=== PATIENT | male | born 1965 | race Caucasian/White ===

== ENCOUNTER 2017-09-30 13:03 | Inpatient (IN) | payer OTHER ==
[2017-09-30 13:05] VITALS: BP 179/84; PULSE 97; RESP 18; TEMP 99.3; O2SAT 97
[2017-09-30 13:44] LABS: AUTOMATED NEUTROPHIL # 7.3 TH/MM3 (1.8-7.7); BASOPHIL % 0.3 % (0.0-2.0); EOSINOPHIL % 0.3 % (0.0-4.0); HEMATOCRIT 44.6 % (39.0-51.0); HEMOGLOBIN 15.4 GM/DL (13.0-17.0); LYMPH % 14.9 % (9.0-44.0); LYMPHOCYTE # 1.4 TH/MM3 (1.0-4.8); MEAN CELL VOLUME 91.8 FL (80.0-100.0); MEAN CORPUSCULAR HEMOGLOBIN 31.7 PG (27.0-34.0); MEAN CORPUSCULAR HGB CONC 34.5 % (32.0-36.0); MEAN PLATELET VOLUME 7.9 FL (7.0-11.0); MONO % 9.2 % (0.0-8.0); MONOCYTE # 0.9 TH/MM3 (0-0.9); NEUT % 75.3 % (16.0-70.0); PLATELET COUNT 245 TH/MM3 (150-450); RED BLOOD COUNT 4.86 MIL/MM3 (4.50-5.90); RED CELL DISTRIBUTION WIDTH 12.7 % (11.6-17.2); WHITE BLOOD COUNT 9.6 TH/MM3 (4.0-11.0)
[2017-09-30 13:59] LABS: BICARBONATE 27.9 MEQ/L (21.0-32.0); CALCIUM 9.1 MG/DL (8.5-10.1); CREATININE 1.02 MG/DL (0.60-1.30)
[2017-09-30] MEDS ORDERED: LORA2TAB7 PO (14:43)
[2017-09-30] MEDS ORDERED: KETOROLAC TROMETHAMINE 30 MG/ML (IVP) VIAL IV PUSH ONE (15:30)
[2017-09-30] MEDS ORDERED: VANCOMYCIN INJ 1,000 MG in SODIUM CHLOR 0.9% 250 ML INJ 250 ML IV ONE (15:30)
[2017-09-30] MEDS ORDERED: SODIUM CHLOR 0.9% 1000 ML INJ 1,000 ML IV ONE (15:30)
[2017-09-30] MEDS ORDERED: AZTREONAM INJ 2,000 MG in SODIUM CHLORIDE 0.9% INJ 100 ML IV ONE (15:30)
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
[2017-09-30] MEDS ORDERED: MAGNESIUM HYDROXIDE SUSP 30 ML CUP PO PRN (16:00)
[2017-09-30] MEDS ORDERED: ONDANSETRON HCL 4 MG/2 ML VIAL IVP PRN (16:00)
[2017-09-30] MEDS ORDERED: NALOXONE HCL 0.4 MG/ML AMP IV PUSH PRN (16:00)
[2017-09-30] MEDS ORDERED: SODIUM CHLORIDE 0.9% FLUSH 10 ML FLUSH IV FLUSH PRN (16:00)
[2017-09-30] MEDS ORDERED: ACETAMINOPHEN 325 MG TAB PO PRN (16:00)
[2017-09-30] MEDS ORDERED: ACETAMINOPHEN/HYDROcodone 325 MG/5 MG TAB PO PRN (16:15)
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
[2017-09-30] MEDS ORDERED: IOHEXOL 350 MG/ML 10 ML VIAL (for RAD DIAG) IVCONTRAST ONE (17:14)
[2017-09-30 17:15] VITALS: BP 132/68; PULSE 71; RESP 16; TEMP 99.9; O2SAT 97
--- NOTE | 2017-09-30 17:47 | RADRPT ---
EXAM DATE/TIME: 09/30/2017 16:50 [facility] COMPARISON: No previous studies available for comparison. INDICATIONS : Left hand pain, cellulitis. IV CONTRAST: 81 cc Omnipaque 350 (iohexol) IV RADIATION DOSE: 11.61 CTDIvol (mGy) MEDICAL HISTORY : Hypertension. TIA, Cardiac. SURGICAL HISTORY : Pacemaker. Defibrillator. ENCOUNTER: Initial ACUITY: 2 days PAIN SCALE: 10/10 LOCATION: anterior middle palm. TECHNIQUE: Volumetric scanning of the hand was performed. Using automated exposure control and a djustment of the mA and/or kV according to patient size, radiation dose was kept as low as reasonably achievable to obtain optimal diagnostic quality images. DICOM format image data is available electr onically for review and comparison. FINDINGS: BONES: Osseous structures appear intact without evidence for acute fracture or focal bony destruc tion. Alignment is within normal limits. JOINTS: Joint spaces are maintained. SOFT TISSUES: Muscles, tendons, and neurovascular structures are grossly unremarkable. There is d iffuse soft tissue edema overlying the dorsum of the hand. Very subtle low density bilobed collection measuring approximately 1.5 x 0.4 x 3.1 cm in the dorsal radial aspect of the proximal hand. CONCLUSION: 1. Findings consistent with cellulitis primarily involving the dorsum of the hand with a very small 1 .5 x 0.4 x 1.3 cm developing collection in the dorsal radial aspect of the proximal hand. 2. No evidence for erosive bony change, subcutaneous emphysema or acute bony fracture. Khari Brady MD on September 30, 2017 at 17:39 Board Certified Radiologist. This report was verified electronically.
[2017-09-30] MEDS: SODIUM CHLOR 0.9% 1000 ML INJ 1,000 ML IV SCH (17:57)
[2017-09-30] MEDS: ACETAMINOPHEN/HYDROcodone 325 MG/5 MG TAB PO PRN (19:44)
[2017-09-30] MEDS: SODIUM CHLORIDE 0.9% FLUSH 10 ML FLUSH IV FLUSH SCH (19:44)
[2017-09-30 20:35] VITALS: BP 150/69; PULSE 91; RESP 22; TEMP 101.3; O2SAT 99
[2017-09-30] MEDS: MORPHINE SULFATE 2 MG/ML INJ IV PUSH PRN ×2 (20:51→23:54)
[2017-09-30] MEDS: AZTREONAM INJ 2,000 MG in SODIUM CHLORIDE 0.9% INJ 100 ML IV SCH (20:53)
[2017-09-30] MEDS: VANCOMYCIN INJ 1,000 MG in SODIUM CHLOR 0.9% 250 ML INJ 250 ML IV SCH (20:53)
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
--- NOTE | 2017-09-30 22:50 | RADRPT ---
EXAM DATE/TIME: 09/30/2017 20:51 [facility] COMPARISON: No previous studies available for comparison. INDICATIONS : Inflammation left hand, poisonous plant stuck hand MEDICAL HISTORY : Hypertension. TIA, Cardiac. SURGICAL HISTORY : Pacemaker. Defibrillator ENCOUNTER: Initial ACUITY: 2 days PAIN SCORE: 10/10 LOCATION: Left Hand FINDINGS: Three view examination of the left hand demonstrates no bony destruction, dislocation, or fracture. There is moderate dorsal soft tissue swelling noted. The carpal bones appear intact. The interphala ngeal and metacarpophalangeal joints are intact. Bony mineralization is normal. No radiodense foreig n body. CONCLUSION: Soft tissue swelling. No acute bony findings. Fahad Muniz MD on September 30, 2017 at 22:48 Board Certified Radiologist. This report was verified electronically.
[2017-10-01] VITALS (7 sets, daily range): BP systolic 109–156; BP diastolic 58–80; PULSE 63–90; RESP 20–21; TEMP 98.7–100.1; O2SAT 92–100
[2017-10-01] MEDS: SODIUM CHLOR 0.9% 1000 ML INJ 1,000 ML IV SCH ×3 (02:00→22:46)
[2017-10-01] MEDS: MORPHINE SULFATE 2 MG/ML INJ IV PUSH PRN ×6 (04:01→22:40)
[2017-10-01 07:22] LABS: HEMATOCRIT 39.6 % (39.0-51.0); HEMOGLOBIN 13.5 GM/DL (13.0-17.0); MEAN CELL VOLUME 91.7 FL (80.0-100.0); MEAN CORPUSCULAR HEMOGLOBIN 31.2 PG (27.0-34.0); MEAN PLATELET VOLUME 8.2 FL (7.0-11.0); PLATELET COUNT 193 TH/MM3 (150-450); RED BLOOD COUNT 4.32 MIL/MM3 (4.50-5.90); WHITE BLOOD COUNT 6.4 TH/MM3 (4.0-11.0)
[2017-10-01] MEDS: SODIUM CHLORIDE 0.9% FLUSH 10 ML FLUSH IV FLUSH SCH ×2 (07:39→20:32)
[2017-10-01 07:42] LABS: BICARBONATE 26.4 MEQ/L (21.0-32.0); CALCIUM 8.2 MG/DL (8.5-10.1); CREATININE 0.66 MG/DL (0.60-1.30)
[2017-10-01] MEDS: VANCOMYCIN INJ 1,000 MG in SODIUM CHLOR 0.9% 250 ML INJ 250 ML IV SCH ×2 (09:49→22:43)
[2017-10-01] MEDS: AZTREONAM INJ 2,000 MG in SODIUM CHLORIDE 0.9% INJ 100 ML IV SCH (10:26)
--- NOTE | 2017-10-01 12:33 | MB ---
cc: HUMBERTO BREWSTER MD DATE OF CONSULTATION: 10/01/[address] Bo REASON FOR CONSULTATION: 1. Severe cellulitis of the left arm and forearm 2. Questionable abscess. HISTORY OF PRESENT ILLNESS This is a 52-year-old white male who presents to emergency department 4 days after being struck by thorns from the plant. The patient states that he was cleaning his yard and got struck on the palmar aspect of the left hand and then he developed swelling and pain which was worsening and therefore he came to emergency department for evaluation. He was admitted to the hospital and temperature was to 101.3 degrees yesterday evening. Blood cultures were obtained. CT scan of the upper extremities revealed findings consistent with cellulitis involving the dorsum of the hand and a very small fluid collection at the dorsal, radial aspect of the proximal hand. There was no evidence of bony destructive change noted. The patient notes that he is still has a lot of pain in the hand. The dorsum of the hand is markedly swollen and he has pain when he tries to move the fingers. He has been started on IV antibiotics. He was also evaluated by the hand surgeon. It was felt that there is no drainable fluid collection. His white blood cell count is normal. This consultation is requested for antibiotic management. PAST MEDICAL HISTORY 1. Anxiety disorder 2. History of IV drug use but reportedly has been clean for 4 years. 3. Nasal surgery. ALLERGIES PENICILLIN CODEINE PROCAINE MEDICATIONS Vancomycin aztreonam [place] morphine sulfate p.r.n. SOCIAL HISTORY The patient smokes a pack of cigarettes a day. Denies alcohol. There is a history of IV drug use. FAMILY HISTORY Noncontributory. REVIEW OF SYSTEMS Significant for headache, nausea and left hand pain. PHYSICAL EXAMINATION IN GENERAL: This is a slender male who is in no acute distress. He appears somewhat somnolent but is easily aroused, and he is in no acute distress. VITAL SIGNS: Temperature 100.1, Blood pressure 102/62, respirations 20, heart rate 75. HEAD, EYES, EARS, NOSE, AND THROAT: Extraocular movements grossly intact, pupils reactive to light. No icterus. Oropharynx moist mucosa without lesions. NECK: Supple without adenopathy or swelling. LUNGS: Clear to auscultation. HEART: Regular S1-S2, without murmurs. ABDOMEN: Bowel sounds present, soft, nontender. RECTUM: Rectal was not preformed. EXTREMITIES: The left hand has marked swelling at the dorsum of the hand and the fingers of swollen as well. There is a line of demarcation drawn with a marker at the area just beneath the elbow region and it indicates erythema involving the forearm and also the dorsum of the hand. Currently there is no significant visible erythema but there is significant swelling and extreme tenderness on palpation of both the forearm and the hand. The other extremities have no clubbing, cyanosis or edema. SKIN: No diffuse rash. NEUROLOGIC: No gross focal findings. LABORATORY DATA WBCs 6.4, platelets 193, creatinine 0.60, BUN eight, sodium 139 and C-reactive protein 8.6. Toxicology screen positive for opiates and amphetamines. IMPRESSION 1. Cellulitis of the left hand and forearm following thorn injury to the hand. There is no current drainage from the area where the patient was struck by the thorn. 2. Fever secondary to the cellulitis. RECOMMENDATIONS 1. Continue vancomycin 2. Discontinue the aztreonam. 3 begin Levaquin for Gram-negative bacteria coverage. 4. Monitor the response to antibiotics and elevation of the left hand. Since there is no drainage to obtain a culture and it does not seem that there is a drainable fluid collection at the hand, we will need to follow up his response to the antibiotics. Thank you this consultation. Further determination on antibiotics will be based on the patient's response. If he improves satisfactorily he could probably be switched to oral antibiotics and discharged. Humberto Brewster MD FD/ronnell /11:38 AM /11:56 AM
[2017-10-01] MEDS: LEVOFLOXACIN 750 MG TAB PO SCH (13:16)
--- NOTE | 2017-10-01 14:46 | HHI.PR ---
Subjective Remarks No new complaints Objective Vital Signs Date Time Temp Pulse Resp B/P (MAP) Pulse Ox O2 Delivery O2 Flow Rate FiO2 10/01/17 13:22 18 10/01/17 12:00 100.1 72 20 117/59 (78) 95 10/01/17 08:00 100.1 75 20 124/62 (82) 92 10/01/17 04:00 98.7 63 20 114/62 (79) 97 10/01/17 00:35 99.1 68 20 109/58 (75) 93 10/01/17 00:31 68 09/30/17 20:35 101.3 91 22 150/69 (96) 99 09/30/17 17:15 99.9 71 16 132/68 (89) 97 09/30/17 17:14 I/O 09/30/17 09/30/17 09/30/17 10/01/17 10/01/17 10/01/17 07:00 15:00 23:00 07:00 15:00 23:00 Intake Total 700 ml 1000 ml 1621 ml Output Total 700 ml 600 ml Balance 700 ml 300 ml 1021 ml Intake IV Total 700 ml 1000 ml 1621 ml Output Urine Total 700 ml 600 ml Result Diagram: 10/01/17 0610/01/17 0626 Objective Remarks Examination left upper extremity reveals mild but notable improvement in the edema and especially the erythema in the dorsal aspect of the left hand wrist and forearm Neurovascularly intact throughout Able to passively move his hands fully although with some discomfort, but this is much more than yesterday Assessment and Plan Problem List: (1) Cellulitis ICD Codes: L03.90 - Cellulitis, unspecified Plan: Continue IV antibiotics and strict elevation of the left hand. I've requested the cortex come back and modify his left upper extremity splint to make it more comfortable so he'll be more compliant I've encouraged him and shown him how to do exercises which will help with the edema and stiffness No indication for any surgical intervention at this time Efrain Cifuentes III, MD Oct 01, 2017 14:46
--- NOTE | 2017-10-01 17:41 | HHI.PR ---
Subjective Remarks Complaints of left hand/arm pain. Patient febrile with a MAXIMUM TEMPERATURE of 100.1. Denies chest pain or shortness of breath. Denies nausea vomiting or abdominal pain. Objective Vitals Vital Signs Date Time Temp Pulse Resp B/P (MAP) Pulse Ox O2 Delivery O2 Flow Rate FiO2 10/01/17 17:07 18 10/01/17 16:40 99.5 76 20 134/60 (84) 97 10/01/17 12:00 100.1 72 20 117/59 (78) 95 10/01/17 08:00 100.1 75 20 124/62 (82) 92 10/01/17 04:00 98.7 63 20 114/62 (79) 97 10/01/17 00:35 99.1 68 20 109/58 (75) 93 10/01/17 00:31 68 09/30/17 20:35 101.3 91 22 150/69 (96) 99 I/O 09/30/17 09/30/17 09/30/17 10/01/17 10/01/17 10/01/17 07:00 15:00 23:00 07:00 15:00 23:00 Intake Total 700 ml 1000 ml 1621 ml Output Total 700 ml 600 ml Balance 700 ml 300 ml 1021 ml Intake IV Total 700 ml 1000 ml 1621 ml Output Urine Total 700 ml 600 ml Result Diagram: 10/01/17 0610/01/17 0626 Imaging Last Impressions Upper Extremity CT 09/30/17 0000 Signed Impressions: Service Date/Time: September 16:50 - CONCLUSION: 1. Findings consistent with cellulitis primarily involving the dorsum of the hand with a very small 1.5 x 0.4 x 1.3 cm developing collection in the dorsal radial aspect of the proximal hand. 2. No evidence for erosive bony change, subcutaneous emphysema or acute bony fracture. Khari Brady MD Hand X-Ray 09/30/17 0000 Signed Impressions: Service Date/Time: September 20:51 - CONCLUSION: Soft tissue swelling. No acute bony findings. Fahad Muniz MD Objective Remarks GENERAL: This is a well-nourished, well-developed patient, in no apparent distress. SKIN:B/L hand is dirty. left hand/arm with swelling and erythema. very tender to palpations. sensation is intact. pulse intact. HEAD: Atraumatic. Normocephalic. No temporal or scalp tenderness. EYES: Pupils equal round and reactive. Extraocular motions intact. No scleral icterus. No injection or drainage. ENT: Nose without bleeding, purulent drainage or septal hematoma. Throat without erythema, tonsillar hypertrophy or exudate. Uvula midline. Airway patent. NECK: Trachea midline. No JVD or lymphadenopathy. Supple, nontender, no meningeal signs. CARDIOVASCULAR: Regular rate and rhythm without murmurs, gallops, or rubs. RESPIRATORY: Clear to auscultation. Breath sounds equal bilaterally. No wheezes , rales, or rhonchi. GASTROINTESTINAL: Abdomen soft, non-tender, nondistended. No hepato-splenomegaly , or palpable masses. No guarding. MUSCULOSKELETAL: Extremities without clubbing, cyanosis, or edema. No joint tenderness, effusion, or edema noted. No calf tenderness. Negative Homans sign bilaterally. NEUROLOGICAL: Awake and alert. Cranial nerves II through XII intact. Motor and sensory grossly within normal limits. Five out of 5 muscle strength in all muscle groups. Normal speech. Medications and IVs Current Medications Medications (Trade) Dose Ordered Sig/[place] Route Start Time Stop Time Status Last Admin Sodium Chloride 1,000 ml @ 100 mls/hr Q10H IV 09/30/17 16:00 10/01/17 02:00 (NS Flush) 2 ml UNSCH PRN IV FLUSH 09/30/17 16:00 (NS Flush) 2 ml BID IV FLUSH 09/30/17 21:00 09/30/17 19:44 (Tylenol) 650 mg Q4H PRN PO 09/30/17 16:00 09/30/17 21:09 (Zofran Inj) 4 mg Q6H PRN IVP 09/30/17 16:00 (Narcan Inj) 0.4 mg UNSCH PRN IV PUSH 09/30/17 16:00 (Milk Of Magnesia Liq) 30 ml Q12H PRN PO 09/30/17 16:00 Vancomycin HCl 1000 mg/Sodium Chloride 250 ml @ 250 mls/hr Q12H IV 09/30/17 22:00 10/01/17 09:49 (Elizabeth 5-325 Mg) 1 tab Q4H PRN PO 09/30/17 16:15 (Elizabeth 5-325 Mg) 2 tab Q4H PRN PO 09/30/17 16:15 09/30/17 19:44 (Morphine Inj) 2 mg Q3H PRN IV PUSH 09/30/17 16:15 10/01/17 17:02 (Levaquin) 750 mg Q24H PO 10/01/17 13:00 10/01/17 13:16 A/P Problem List: (1) Sepsis ICD Code: A41.9 - Sepsis, unspecified organism Plan: The patient met sepsis criteria on admission. Patient had a heart rate of more than 90 and fever with a MAXIMUM TEMPERATURE of 101.3. Sepsis secondary to cellulitis of the left hand/arm. Due to questionable abscess, hand surgery was consulted. I discussed the case with Dr. Hitchcock will does not think there is an abscess. IV aztreonam and IV vancomycin were given and the ED. ID consulted. Aztreonam discontinued and recommended to continue IV vancomycin. Start IV Levaquin for gram-negative bacteria coverage. Continue pain control. We will continue with oral Elizabeth and morphine sulfate for breakthrough pain only. (2) Cellulitis ICD Code: L03.90 - Cellulitis, unspecified Plan: As above. (3) Deep palmar space infection ICD Code: M79.89 - Other specified soft tissue disorders; B99.9 - Unspecified infectious disease Status: Acute Assessment and Plan DVT prophylaxis: SCDs. I will add Lovenox subcutaneously. Discharge Planning Continue to monitor in the medical floor. Richy Jiang MD Oct 01, 2017 17:41
[2017-10-01] MEDS: ENOXAPARIN SODIUM 40 MG/0.4 ML SYRINGE SQ SCH (18:00)
[2017-10-01] MEDS: ACETAMINOPHEN/HYDROcodone 325 MG/5 MG TAB PO PRN (20:31)
[2017-10-02] VITALS: BP 112/54; PULSE 72; RESP 21; TEMP 99.8; O2SAT 97
[2017-10-02] MEDS: ACETAMINOPHEN/HYDROcodone 325 MG/5 MG TAB PO PRN ×4 (00:55→16:09)
[2017-10-02] MEDS: MORPHINE SULFATE 2 MG/ML INJ IV PUSH PRN ×4 (03:15→17:21)
[2017-10-02 04:00] VITALS: BP 121/61; PULSE 63; RESP 20; TEMP 98; O2SAT 98
[2017-10-02] MEDS: SODIUM CHLORIDE 0.9% FLUSH 10 ML FLUSH IV FLUSH SCH (07:17)
[2017-10-02] MEDS: SODIUM CHLOR 0.9% 1000 ML INJ 1,000 ML IV SCH ×2 (07:17→15:22)
[2017-10-02 08:00] VITALS: BP 117/58; PULSE 56; RESP 18; TEMP 97.8; O2SAT 97
[2017-10-02] MEDS: VANCOMYCIN INJ 1,000 MG in SODIUM CHLOR 0.9% 250 ML INJ 250 ML IV SCH (09:17)
[2017-10-02 12:00] VITALS: BP 133/65; PULSE 63; RESP 18; TEMP 97.5; O2SAT 97
[2017-10-02] MEDS: LEVOFLOXACIN 750 MG TAB PO SCH (12:04)
[2017-10-02] MEDS: ENOXAPARIN SODIUM 40 MG/0.4 ML SYRINGE SQ SCH (15:22)
[2017-10-02 16:00] VITALS: BP 133/66; PULSE 62; RESP 18; TEMP 97.2; O2SAT 96
[2017-10-02] MEDS ORDERED: LEVO750T3 PO (17:24)
[2017-10-02] MEDS ORDERED: HYDR-3516 PO (17:24)
[2017-10-02] MEDS ORDERED: DOXY100C PO (17:24)
--- NOTE | 2017-10-02 17:24 | HHI.DCPOC ---
Discharge Care Plan Diagnosis: (1) Sepsis (2) Cellulitis (3) Deep palmar space infection Goals to Promote Your Health * To prevent worsening of your condition and complications * To maintain your health at the optimal level Directions to Meet Your Goals Take your medications as prescribed Follow your dietary instruction Follow activity as directed Keep your appointments as scheduled Take your immunizations and boosters as scheduled If your symptoms worsen call your PCP, if no PCP go to Urgent Care Center or Emergency Room Smoking is Dangerous to Your Health. Avoid second hand smoke Call the 24-hour hour crisis hotline for domestic abuse at Richy Jiang MD Oct 02, 2017 17:24
[2017-10-02 17:26] VITALS: RESP 18
[2017-10-02] MEDS ORDERED: LACTTAB8 PO (17:27)
--- NOTE | 2017-10-02 17:29 | HHI.DS ---
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 Patient stated that he was cleaning his yard 2 days ago and a foreign stuck his hand. He stated the past 2 days his left hand/arm became red and swollen and very painful. Denied any fevers or chills. Decrease range of motion with hand secondary to pain. All other review system reviewed and negative. CBC/BMP: 10/01/17 0626 10/01/17 0626 Significant Findings Laboratory Tests Test 09/30/17 13:34 09/30/17 15:57 09/30/17 16:30 09/30/17 19:06 Neutrophils (%) (Auto) 75.3 % (16.0-70.0) Monocytes (%) (Auto) 9.2 % (0.0-8.0) Random Glucose 129 MG/DL (74-106) Sodium Level 135 MEQ/L (136-145) Estimat Glomerular Filtration Rate 77 ML/MIN (>89) C-Reactive Protein 8.60 MG/DL (0.00-0.30) Urine Opiates Screen POS (NEG) Urine Amphetamines Screen POS (NEG) Lactic Acid Level 0.2 mmol/L (0.4-2.0) Test 10/01/17 06:26 Red Blood Count 4.32 MIL/MM3 (4.50-5.90) Calcium Level 8.2 MG/DL (8.5-10.1) Imaging Last Impressions Upper Extremity CT 09/30/17 0000 Signed Impressions: Service Date/Time: September 16:50 - CONCLUSION: 1. Findings consistent with cellulitis primarily involving the dorsum of the hand with a very small 1.5 x 0.4 x 1.3 cm developing collection in the dorsal radial aspect of the proximal hand. 2. No evidence for erosive bony change, subcutaneous emphysema or acute bony fracture. Khari Brady MD Hand X-Ray 09/30/17 0000 Signed Impressions: Service Date/Time: September 20:51 - CONCLUSION: Soft tissue swelling. No acute bony findings. Fahad Muniz MD PE at Discharge GENERAL: This is a well-nourished, well-developed patient, in no apparent distress. SKIN:B/L hand is dirty. left hand/arm with swelling and erythema. very tender to palpations. sensation is intact. pulse intact. HEAD: Atraumatic. Normocephalic. No temporal or scalp tenderness. EYES: Pupils equal round and reactive. Extraocular motions intact. No scleral icterus. No injection or drainage. ENT: Nose without bleeding, purulent drainage or septal hematoma. Throat without erythema, tonsillar hypertrophy or exudate. Uvula midline. Airway patent. NECK: Trachea midline. No JVD or lymphadenopathy. Supple, nontender, no meningeal signs. CARDIOVASCULAR: Regular rate and rhythm without murmurs, gallops, or rubs. RESPIRATORY: Clear to auscultation. Breath sounds equal bilaterally. No wheezes , rales, or rhonchi. GASTROINTESTINAL: Abdomen soft, non-tender, nondistended. No hepato-splenomegaly , or palpable masses. No guarding. MUSCULOSKELETAL: Extremities without clubbing, cyanosis, or edema. No joint tenderness, effusion, or edema noted. No calf tenderness. Negative Homans sign bilaterally. NEUROLOGICAL: Awake and alert. Cranial nerves II through XII intact. Motor and sensory grossly within normal limits. Five out of 5 muscle strength in all muscle groups. Normal speech. Pt update on day of discharge Patient denies fevers or chills. Let hand is much improved with swelling and tenderness almost resolved. Will DC on oral Doxycycline and Levaquin to complete 14 days. Pt Condition on Discharge: Stable Discharge Disposition: Discharge Home Discharge Time: <= 30 minutes Discharge Instructions DIET: Follow Instructions for: As Tolerated, No Restrictions Activities you can perform: Regular-No Restrictions Follow up Referrals: PCP Follow-up - 2 Weeks New Medications: Doxycycline Hyclate (Doxycycline Hyclate) 100 Mg Cap 100 MG PO BID for Infection, #24 CAP 0 Refills Lactobacillus Acidophilus (Lactobacillus Acidophilus) 1 Billion Cell Tab 1 TAB PO TIDAC for Nutritional Supplement, #30 TAB 0 Refills Levofloxacin (Levofloxacin) 750 Mg Tablet 750 MG PO DAILY for Infection, #12 TAB 0 Refills Hydrocodone/Acetaminophen (Hydrocodone-Acetamin 5-325 mg) 5 Mg-325 Mg Tablet 1 TAB PO Q4H PRN for PAIN SCALE 1 TO 10, #20 TAB Continued Medications: Lorazepam (Lorazepam) 2 Mg Tab 2 MG PO DAILY PRN for ANXIETY, TAB 0 Refills Richy Jiang MD Oct 02, 2017 17:29
== END 2017-10-02 17:54 | disposition home or self-care (01) | DRG 872 ==
LOC: NEPD 13:03 → NEDA 15:44 → N04A 17:24
PROVIDERS: ADMIT Hospitalist; ATTEND Hospitalist
DX: A41.9 Sepsis, unspecified organism (principal); F32.9 Major depressive disorder, single episode, unspecified; L03.114 Cellulitis of left upper limb; S61.432A Puncture wound without foreign body of left hand, initial encounter; F17.210 Nicotine dependence, cigarettes, uncomplicated; F41.9 Anxiety disorder, unspecified; W60.XXXA Contact with nonvenomous plant thorns and spines and sharp leaves, initial encounter; Y92.007 Garden or yard of unspecified non-institutional (private) residence as the place of occurrence of the external cause; Z88.0 Allergy status to penicillin; Z88.5 Allergy status to narcotic agent; Z88.6 Allergy status to analgesic agent
CPT/HCPCS: 73130; 73201; 80048; 80307; 83605; 85025; 85027; 85652; 86140; 87040; 96374; 96375; J1885; J2270; J3370; J7030; J7050; Q9967

== ENCOUNTER 2017-10-18 17:47 | Inpatient (IN) | payer OTHER ==
[~2017-10-18] VITALS: Ht 170.2 cm; Wt 75.0 kg
[~2017-10-18 17:47] MED LIST: DOXY100C PO; HYDR-3516 PO; LACTTAB8 PO; LEVO750T3 PO; LORA2TAB7 PO
[2017-10-18 17:49] VITALS: BP 123/76; PULSE 85; RESP 16; TEMP 98.1; O2SAT 94
--- NOTE | 2017-10-18 18:35 | RADRPT ---
EXAM DATE/TIME: 10/18/2017 18:07 [facility] COMPARISON: HAND LEFT COMPLETE ([id number]), September 30, 2017, 20:51. INDICATIONS : Pain, swelling left hand, stuck hand with poisonous plant MEDICAL HISTORY : Hypertension. TIA, Cardiac. SURGICAL HISTORY : Pacemaker. Defibrillator ENCOUNTER: [facility] ACUITY: 2 weeks PAIN SCORE: 10/10 LOCATION: Left Hand FINDINGS: Three view examination of the left hand demonstrates no dislocation or fracture. Dorsal soft tissue s welling noted. No radiopaque foreign body observed. The carpal bones appear intact. The interphalan geal and metacarpophalangeal joints are intact. Bony mineralization is normal. CONCLUSION: Soft tissue swelling. Andres Jett Jr., MD on October 18, 2017 at 18:31 Board Certified Radiologist. This report was verified electronically.
[2017-10-18 18:36] LABS: BASOPHIL % 0.5 % (0.0-2.0); EOSINOPHIL # 0.3 TH/MM3 (0-0.4); EOSINOPHIL % 2.9 % (0.0-4.0); HEMATOCRIT 42.3 % (39.0-51.0); HEMOGLOBIN 14.8 GM/DL (13.0-17.0); LYMPH % 27.1 % (9.0-44.0); LYMPHOCYTE # 2.7 TH/MM3 (1.0-4.8); MEAN CELL VOLUME 90.4 FL (80.0-100.0); MEAN CORPUSCULAR HEMOGLOBIN 31.6 PG (27.0-34.0); MEAN PLATELET VOLUME 8.3 FL (7.0-11.0); MONO % 9.9 % (0.0-8.0); NEUT % 59.6 % (16.0-70.0); PLATELET COUNT 228 TH/MM3 (150-450); RED BLOOD COUNT 4.67 MIL/MM3 (4.50-5.90); RED CELL DISTRIBUTION WIDTH 13.2 % (11.6-17.2)
[2017-10-18 18:40] LABS: INTERNATIONAL NORMALIZED RATIO 1.1 RATIO; PROTHROMBIN TIME - PATIENT 10.9 SEC (9.8-11.6)
[2017-10-18 19:01] LABS: BICARBONATE 29.4 MEQ/L (21.0-32.0); CALCIUM 8.6 MG/DL (8.5-10.1); CREATININE 0.98 MG/DL (0.60-1.30)
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
[2017-10-18 19:36] VITALS: BP 132/60; PULSE 65; RESP 18; O2SAT 98
[2017-10-18] MEDS ORDERED: ACETAMINOPHEN/HYDROcodone 325 MG/5 MG TAB PO ONE (20:00)
[2017-10-18] MEDS ORDERED: LEVOFLOXACIN 750 MG PREMIX INJ 150 ML IV ONE (20:00)
[2017-10-18] MEDS ORDERED: VANCOMYCIN INJ 1,500 MG in SODIUM CHLORID 0.9% 500 ML INJ 500 ML IV ONE (20:00)
[2017-10-18 20:10] VITALS: BP 110/58; PULSE 60; RESP 18; O2SAT 100
[2017-10-18] MEDS ORDERED: NALOXONE HCL 0.4 MG/ML AMP IV PUSH PRN (20:15)
[2017-10-18] MEDS ORDERED: SODIUM CHLORIDE 0.9% FLUSH 10 ML FLUSH IV FLUSH PRN (20:15)
[2017-10-18] MEDS ORDERED: ESCI20TA PO (20:26)
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
[2017-10-18 21:35] VITALS: BP 113/55; PULSE 70; RESP 17; O2SAT 99
[2017-10-18] MEDS ORDERED: POTASSIUM CHLORIDE 20 MEQ CONTROLLED RELEASE TAB PO ONE (22:00)
[2017-10-18] MEDS: HYDROmorphone HCL PF 2 MG/ML VIAL IV PRN (22:35)
[2017-10-18] MEDS: SODIUM CHLORIDE 0.9% FLUSH 10 ML FLUSH IV FLUSH SCH (23:17)
[2017-10-19 02:44] VITALS: BP 119/57; PULSE 71; RESP 18; TEMP 98.3; O2SAT 95
[2017-10-19] MEDS: HYDROmorphone HCL PF 2 MG/ML VIAL IV PRN ×4 (02:48→21:37)
[2017-10-19 08:01] VITALS: BP 112/57; PULSE 63; RESP 18; TEMP 98.2; O2SAT 94
[2017-10-19] MEDS: SODIUM CHLORIDE 0.9% FLUSH 10 ML FLUSH IV FLUSH SCH ×2 (09:00→21:00)
[2017-10-19 09:35] LABS: AUTOMATED NEUTROPHIL # 4.6 TH/MM3 (1.8-7.7); BASOPHIL % 0.4 % (0.0-2.0); EOSINOPHIL # 0.3 TH/MM3 (0-0.4); EOSINOPHIL % 3.8 % (0.0-4.0); HEMATOCRIT 39.6 % (39.0-51.0); HEMOGLOBIN 13.2 GM/DL (13.0-17.0); LYMPH % 24.5 % (9.0-44.0); LYMPHOCYTE # 1.8 TH/MM3 (1.0-4.8); MEAN CELL VOLUME 92.4 FL (80.0-100.0); MEAN CORPUSCULAR HEMOGLOBIN 30.9 PG (27.0-34.0); MEAN CORPUSCULAR HGB CONC 33.4 % (32.0-36.0); MEAN PLATELET VOLUME 8.2 FL (7.0-11.0); MONO % 9.7 % (0.0-8.0); MONOCYTE # 0.7 TH/MM3 (0-0.9); NEUT % 61.6 % (16.0-70.0); PLATELET COUNT 169 TH/MM3 (150-450); RED BLOOD COUNT 4.29 MIL/MM3 (4.50-5.90); RED CELL DISTRIBUTION WIDTH 13.3 % (11.6-17.2); WHITE BLOOD COUNT 7.4 TH/MM3 (4.0-11.0)
[2017-10-19 09:42] LABS: BICARBONATE 27.3 MEQ/L (21.0-32.0); CALCIUM 8.5 MG/DL (8.5-10.1); CREATININE 0.89 MG/DL (0.60-1.30)
[2017-10-19] MEDS: ACETAMINOPHEN/HYDROcodone 325 MG/5 MG TAB PO PRN ×2 (10:24→15:03)
[2017-10-19 11:53] VITALS: BP 112/56; PULSE 69; RESP 18; TEMP 98.5; O2SAT 94
--- NOTE | 2017-10-19 12:04 | HHI.PR ---
Subjective Remarks In bed says he has pain in his left hand and swelling is the same. not much redness. Can move fingers, pain is fairly controlled by emds however per nurse he is asking for dilaudid only. No fever ro chills ./No n./v/d/c. Eating well. Objective Vitals Vital Signs Date Time Temp Pulse Resp B/P (MAP) Pulse Ox O2 Delivery O2 Flow Rate FiO2 10/19/17 11:53 98.5 69 18 112/56 (74) 94 10/19/17 08:01 98.2 63 18 112/57 (75) 94 10/19/17 03:19 18 10/19/17 02:44 98.3 71 18 119/57 (77) 95 10/18/17 23:27 10/18/17 21:35 70 17 113/55 (74) 99 Room Air 10/18/17 20:10 60 18 110/58 (75) 100 Room Air 10/18/17 19:36 65 18 132/60 (84) 98 Room Air 10/18/17 17:49 98.1 85 16 123/76 (92) 94 I/O 10/18/17 10/18/17 10/18/17 10/19/17 10/19/17 10/19/17 06:59 14:59 22:59 06:59 14:59 22:59 Intake Total 150 ml Balance 150 ml Intake IV Total 150 ml Result Diagram: 10/19/17 0840 10/19/17 0840 Imaging Last Impressions Hand X-Ray 10/18/17 0000 Signed Impressions: Service Date/Time: Wednesday, October 18, 2017 18:07 - CONCLUSION: Soft tissue swelling. Andres Jett Jr., MD Objective Remarks GENERAL: This is a well-nourished, well-developed patient, who appears in pain SKIN: left hand with edema, and erythema CARDIOVASCULAR: Regular rate and rhythm without murmurs, gallops, or rubs. RESPIRATORY: Clear to auscultation. Breath sounds equal bilaterally. No wheezes , rales, or rhonchi. GASTROINTESTINAL: Abdomen soft, non-tender, nondistended. No guarding. MUSCULOSKELETAL:Left hand edema. and joint tenderness. No calf tenderness. NEUROLOGICAL: Awake and alert. Motor and sensory grossly within normal limits. Minimal movement in left fingers. Normal speech. A/P Problem List: (1) Cellulitis ICD Code: L03.90 - Cellulitis, unspecified (2) Anxiety ICD Code: F41.9 - Anxiety disorder, unspecified (3) Hypokalemia ICD Code: E87.6 - Hypokalemia Assessment and Plan 52 Y/O male with a history of anxiety presented to the ED with worsening left hand cellulitis. Cellulitis, left hand, worsening, failed OP therapy Hand x ray reviewed and shows soft tissue swelling ESR 97, CRP 4.0 -IV antibiotics Vancomycin and Levaquin given in ED, will continue Levaquin and consult ID -Pain management with Hoffman and IV Dilaudid -Consult hand surgery for recommendations Hypokalemia, potassium 3.3 on admission, replaced. -replaced, monitor BMP , trend and replace as needed Anxiety, chronic -Will resume Ativan if needed DVT Prophylaxis: SCDs Discussed Condition With Patient, nurse Problem Qualifiers (1) Cellulitis: Qualified Codes: L03.114 - Cellulitis of left upper limb Elisabeth Scales MD Oct 19, 2017 12:04
[2017-10-19] MEDS ORDERED: methylPREDNISolone SOD SUCC 125 MG/2 ML VIAL IV PUSH ONE (15:30)
[2017-10-19] MEDS ORDERED: GLUCAGON 1 MG/ML VIAL OTHER PRN (15:30)
[2017-10-19] MEDS ORDERED: DEXTROSE 50% IN WATER 50 ML VIAL(D50) IV PUSH PRN (15:30)
[2017-10-19] MEDS ORDERED: GADODIAMIDE PF 287 MG/ML 5 ML VIAL (for RAD MRI) IV PUSH ONE (16:28)
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
--- NOTE | 2017-10-19 16:49 | MB ---
cc: HUMBERTO BREWSTER MD DATE OF CONSULTATION 10/19/[address] Berkowitz REASON FOR CONSULTATION Worsening hand infection with recurrence while on outpatient antibiotics from last discharge. HISTORY OF PRESENT ILLNESS This is a 52-year-old white male who was recently admitted to the hospital with left hand cellulitis. The patient received IV antibiotics in the hospital for cellulitis of his left hand between 09/30 and 10/02. He was then discharged on oral antibiotic in the form of doxycycline and Levaquin. He completed the antibiotics five days ago. He presented again to the emergency department yesterday because of severe pain in his left hand and he was having difficulty moving his fingers in the form of closing his hand completely. He states that he has had fever and chills for the past couple of days. The patient underwent a plain film of the hand which shows soft tissue swelling. Hand surgeon has also been consulted and an MRI of the wrist has been ordered. He has no other complaints besides the pain, chills and fever. He has been afebrile since presenting here. His white count is normal. PAST MEDICAL HISTORY 1. Anxiety disorder, 2. History of tonsillar abscess 3. Nasal surgery 4. Past history of IV drug use but no IV drugs currently. ALLERGIES PENICILLIN CODEINE PROCAINE Penicillin, codeine procaine ASPIRIN MEDICATIONS 1. Levaquin 2. Dilaudid p.r.n. 3. Mcewen 5 p.r.n. SOCIAL HISTORY The patient is currently homeless. He reports that he has to be at the housing department in two days to feel out forms so that he can get housing. No alcohol. The patient smokes a pack of cigarettes a day. No illicit drug use. FAMILY HISTORY Noncontributory. REVIEW OF SYSTEMS Significant for fever, chills and pain in the left hand. Negative on 10-point review besides. PHYSICAL EXAMINATION GENERAL: This is a slender well-developed male in no acute distress. He is awake, alert and oriented. VITAL SIGNS: Temperature of 98.5, BP 112/56, respirations 20, heart rate 69. HEENT: Head atraumatic. Extraocular movements grossly intact. No icterus. Oropharynx moist mucosa without lesions. NECK: Supple without adenopathy. LUNGS: Clear breath sounds bilateral. HEART: Regular S1-S2 without murmurs, rubs or gallops. ABDOMEN: Bowel sounds present, soft, nontender. RECTAL: Not performed. EXTREMITIES: The dorsum of the left hand at the wrist has no erythema. However, there is swelling at the wrist between the ulnar and radial bones at the tunnel and above the palm at the dorsal aspect. It is tender to palpation. The ulnar and radial pulses are intact. SKIN: No diffuse rash. NEUROLOGIC: No gross focal findings. PSYCHIATRIC: The patient is calm and cooperative. LABORATORY DATA WBC 7.4, platelets 169, 61% neutrophils, 24% lymphocytes, 9% monocytes, sedimentation rate 97, creatinine 0.89, BUN eight, sodium 139. IMPRESSION Left hand soft tissue abnormality with swelling. Possible tendinitis versus foreign body. No clear evidence of cellulitis from the appearance of the hand. RECOMMENDATIONS 1. Continue the Levaquin which the patient is currently receiving. 2. Follow the MRI. 3. Monitor the hand. Further recommendations will follow depending on the patient's response and findings on radiographic studies. Thank you for this consultation. Humberto Brewster MD FD/ /2:53 PM /4:30 PM MTDD
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
[2017-10-19 17:11] VITALS: BP 126/56; PULSE 59; RESP 18; TEMP 98.2; O2SAT 96
[2017-10-19] MEDS: INSULIN ASPART SUPPLEMENTAL SCALE SQ SCH ×2 (17:36→22:52)
[2017-10-19] MEDS ORDERED: LEVOFLOXACIN 750 MG PREMIX INJ 150 ML IV SCH (20:00)
[2017-10-20] VITALS: BP 114/57; PULSE 63; RESP 20; TEMP 97.5; O2SAT 95
[2017-10-20] MEDS: ACETAMINOPHEN/HYDROcodone 325 MG/5 MG TAB PO PRN ×2 (00:56→05:56)
[2017-10-20] MEDS: HYDROmorphone HCL PF 2 MG/ML VIAL IV PRN (02:07)
[2017-10-20 03:14] VITALS: RESP 18
--- NOTE | 2017-10-20 07:34 | PD.AMA ---
Against Medical Advice Note Diagnosis: (1) Cellulitis Discharge Disposition: Against Medical Advice AMA Statement Patient Ash Castorena has decided to leave the hospital against medical advice. This patient has the capacity to refuse care and understands the risks of leaving, including permanent disability and/or , and has had an opportunity to ask questions about his condition. The patient has been informed that he may return for care at any time, and follow up has been arranged/ advised. Luma Prado Oct 20, 2017 07:33
[2017-10-20] MEDS ORDERED: predniSONE 50 MG TAB PO SCH (09:00)
== END 2017-10-20 07:47 | disposition left against medical advice (07) | DRG 603 ==
LOC: NEPC 17:47 → NEDA 20:16 → NEPHCDU 23:48 → OBSVTOIN 10-19 15:31
PROVIDERS: ADMIT Hospitalist; ATTEND Hospitalist
DX: L03.114 Cellulitis of left upper limb (principal); I10 Essential (primary) hypertension; E87.6 Hypokalemia; F41.9 Anxiety disorder, unspecified; F17.210 Nicotine dependence, cigarettes, uncomplicated; R73.03 Prediabetes; K21.9 Gastro-esophageal reflux disease without esophagitis; F32.9 Major depressive disorder, single episode, unspecified; M19.90 Unspecified osteoarthritis, unspecified site; Z59.0 Homelessness
CPT/HCPCS: 73130; 73220; 80048; 82948; 83605; 85025; 85610; 85652; 85730; 86140; 96365; A9579; G0378; J1170; J1815; J1956; J2930; J3370; J7040